=== PATIENT | male | born 1990 | race Caucasian/White ===

== ENCOUNTER 2021-06-28 18:16 | Emergency (ER) | payer OTHER ==
[2021-06-28 18:22] VITALS: BP 134/90; PULSE 100; RESP 20; TEMP 98
--- NOTE | 2021-06-28 18:36 | ED ---
General Adult HPI - General Chief complaint: Extremity Injury, Lower Stated complaint: IHS-knee injury Time Seen by Provider: 06/28/21 18:24 Source: patient, EMS Mode of arrival: EMS - History of Present Illness Initial comments: Dictation was produced using [employer] dictation software. please excuse any grammatical, word or spelling errors. Chief Complaint: 31-year-old male presents with knee dislocation History of Present Illness: 31-year-old male he has history of patellar dislocation to his left knee. 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 He was scuba diving. He was climbing out of the water when all of a sudden flies knee was in a flexed position he notices patellar dislocated laterally. He tried to reduce it however unsuccessful. Shortly after his patella realigned and his symptoms improved. Patient denies any numbness in his legs. States that he has never had patellar this patient has right knee in the past. The ROS documented in this emergency department record has been reviewed and confirmed by me. Those systems with pertinent positive or negative responses have been documented in the HPI. All other systems are other negative and/or noncontributory. PHYSICAL EXAM: General Impression: Alert and oriented x3, not in acute distress HEENT: Normocephalic atraumatic, extra-ocular movements intact, pupils equal and reactive to light bilaterally, mucous membranes moist. Cardiovascular: Heart regular rate and rhythm Chest: Able to complete full sentences, no retractions, no tachypnea Abdomen: abdomen soft, non-tender, non-distended, no organomegaly Musculoskeletal: Pulses present and equal in all extremities, no peripheral edema Motor: no focal deficits noted Neurological: CN II-XII grossly intact, no focal motor or sensory deficits noted Skin: Intact with no visualized rashes Psych: Normal affect and mood Right knee: No effusion, mild tenderness to palpation with knee flexion, intact DP, popliteal and PT pulse ED course: 31-year-old well-appearing male presents with clinical presentation consistent with patellar dislocation of the right knee with spontaneous reduction. As upon arrival are within acceptable limits. Patient denies any dislocation of the distal femur in relation to the tibia. He has history of patellar dislocation to the left flank that he reduced on his own in the past. X-rays unremarkable. Patient placed in knee immobilizer. Patient told to restrict significant weightbearing to the right lower extremity for the time being until evaluated by orthopedic surgery or primary care doctor. Review of Systems ROS Statement: Those systems with pertinent positive or pertinent negative responses have been documented in the HPI. ROS Other: All systems not noted in ROS Statement are negative. Past Medical History Past Medical History: No Reported History History of Any Multi-Drug Resistant Organisms: None Reported Additional Past Surgical History / Comment(s): vestectomy Past Psychological History: No Psychological Hx Reported Smoking Status: Never smoker Past Alcohol Use History: None Reported Past Drug Use History: None Reported Course Vital Signs 06/28/21 18:17 Temperature 98.0 F Pulse Rate 100 Respiratory 20 Rate Blood Pressure 134/90 O2 Sat by Pulse 99 Oximetry Disposition Clinical Impression: Patellar dislocation Disposition: HOME SELF-CARE Condition: Fair Instructions (If sedation given, give patient instructions): Patellar Dislocation (ED) Is patient prescribed a controlled substance at d/c from ED?: No Referrals: Nonstaff,Physician [Primary Care Provider] - 1-2 days
--- NOTE | 2021-06-28 18:59 | XR ---
EXAMINATION TYPE: XR knee complete RT DATE OF EXAM: 06/28/2021 COMPARISON: NONE HISTORY: Knee pain TECHNIQUE: 3 views FINDINGS: There is no fracture nor dislocation. Joint spaces are normal. There is small knee joint ef fusion. IMPRESSION: Small joint effusion. No fracture seen.
== END 2021-06-28 19:21 | disposition home or self-care (01) ==
LOC: EDBD → EC 18:16
DX: S83.005A Unspecified dislocation of left patella, initial encounter (principal); W01.0XXA Fall on same level from slipping, tripping and stumbling without subsequent striking against object, initial encounter; Y93.15 Activity, underwater diving and snorkeling
CPT/HCPCS: 73562; 99283; L1830